=== PATIENT | female | born 1995 | race African-American/Black ===

== ENCOUNTER 2019-06-02 13:47 | Emergency (ER) | payer OTHER ==
[2019-06-02 14:09] VITALS: BP 103/74; PULSE 90; TEMP 98.1; BMI 23.0
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
== END 2019-06-02 14:40 | disposition home or self-care (01) ==
LOC: JERFT 13:47
DX: T21.17XA Burn of first degree of female genital region, initial encounter (principal); X12.XXXA Contact with other hot fluids, initial encounter; Y93.89 Activity, other specified; Y92.89 Other specified places as the place of occurrence of the external cause; F31.9 Bipolar disorder, unspecified; Z87.891 Personal history of nicotine dependence
CPT/HCPCS: 99281-25

== ENCOUNTER 2019-06-08 08:39 | Emergency (ER) | payer OTHER ==
[2019-06-08 08:47] VITALS: BP 99/40; PULSE 85; TEMP 98.2; BMI 22.6
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
== END 2019-06-08 10:06 | disposition home or self-care (01) ==
LOC: JERFT 08:39
DX: T21.22XD Burn of second degree of abdominal wall, subsequent encounter (principal); T24.2 Burn of second degree of lower limb, except ankle and foot; X12.XXXD Contact with other hot fluids, subsequent encounter; F31.9 Bipolar disorder, unspecified; J45.909 Unspecified asthma, uncomplicated; F17.210 Nicotine dependence, cigarettes, uncomplicated
CPT/HCPCS: 99281-25